=== PATIENT | female | born 1995 | race Two or more races ===

== ENCOUNTER 2016-09-28 17:47 | Emergency (ER) | payer OTHER ==
--- NOTE | 2016-09-28 17:55 | PDOC ---
History of Present Illness - General History Source: Patient Exam Limitations: No Limitations <Cinthia Larson - Last Filed: 09/28/16 18:44> - General History Source: Patient Exam Limitations: No Limitations - History of Present Illness Initial Comments: 09/28/16 18:04 Patient is a 21 year old female with a significant past medical history of left knee meniscus tear who presents to the ED with left knee pain. Patient twisted her left leg today and now reports pain and swelling to the left knee. She states that she never had sx intervention to the left knee. ALL - penicillin <Skyla Upton - Last Filed: 09/28/16 18:49> - General Chief Complaint: Pain, Acute Stated Complaint: LEFT KNEE AND LOWER LEG PAIN Time Seen by Provider: 09/28/16 17:51 Past History <Cinthia Larson - Last Filed: 09/28/16 18:44> <Skyla Upton - Last Filed: 09/28/16 18:49> - Past Medical History Allergies/Adverse Reactions: Allergies Allergy/AdvReac Type Severity Reaction Status Date / Time Penicillins Allergy Severe Difficulty Verified 09/28/16 17:49 Breathing Home Medications: Ambulatory Orders NK [No Known Home Medication] 09/28/16 Review of Systems - Review of Systems Able to Perform ROS?: Yes Comments:: 09/28/16 18:04 GENERAL/CONSTITUTIONAL: No: fever, chills, weakness, loss of appetite. HEAD, EYES, EARS, NOSE AND THROAT: No: change in vision, ear pain, discharge, sore throat, throat swelling. CARDIOVASCULAR: No: chest pain, lightheadedness, palpitations, syncope RESPIRATORY: No: cough, shortness of breath, wheezing, hemoptysis, stridor. GASTROINTESTINAL: No: nausea, vomiting, abdominal cramping, diarrhea, rectal bleeding, constipation. GENITOURINARY: No: dysuria, hematuria, frequency, urgency, flank pain. MUSCULOSKELETAL: Yes: left knee pain and swelling No: back pain, neck pain, muscle pain SKIN: No: lesions, pallor, rash or easy bruising. NEUROLOGIC: No: headache, vertigo, paresthesias, weakness ENDOCRINE: No: unexplained weight gain or loss HEMATOLOGIC/LYMPHATIC: No: anemia, easy bleeding, swelling nodes <Skyla Upton - Last Filed: 09/28/16 18:49> *Physical Exam - Vital Signs Last Vital Signs Temp Pulse Resp BP Pulse Ox 98 F 74 16 137/67 100 09/28/16 17:48 09/28/16 17:48 09/28/16 17:48 09/28/16 17:48 09/28/16 17:48 - Physical Exam Comments: 09/28/16 18:05 GENERAL: The patient is in no acute distress. HEAD: Normal with no signs of trauma. EYES: PERRLA, EOMI, sclera anicteric, conjunctiva clear. ENT: Ears normal, nares patent, oropharynx clear without exudates. Moist mucous membranes. NECK: Normal range of motion, supple without lymphadenopathy, JVD, or masses. LUNGS: Breath sounds equal, clear to auscultation bilaterally. No wheezes, and no crackles. HEART:Regular rate and rhythm, normal S1 and S2 without murmur, rub or gallop. ABDOMEN: Soft, nontender, normoactive bowel sounds. No guarding, no rebound. EXTREMITIES: (+)tenderness over left proximal fibula no bruising, Soft compartments, Stable anterior and posterior drawer, No fluid palpated in her joint. Normal range of motion. No clubbing or cyanosis. No erythema. NEUROLOGICAL: Cranial nerves II through XII grossly intact. Normal speech. No focal neurological deficits. MUSCULOSKELETAL: Back nontender to palpation, no CVA tenderness SKIN: Warm, Dry, normal turgor, no rashes or lesions noted. <Skyla Upton - Last Filed: 09/28/16 18:49> ED Treatment Course - RADIOLOGY Radiology Studies Ordered: Category Date Time Status KNEE 3 POS-LEFT [RAD] Stat Radiology 09/28/16 17:54 Ordered <Cinthia Larson - Last Filed: 09/28/16 18:44> Medical Decision Making - Medical Decision Making 09/28/16 17:55 A portion of this note was documented by scribe services under my direction. I have reviewed the details of the note, within reason, and agree with the documentation with the following case summary and management plan written by me. Nursing documentation reviewed and incorporated into medical decision making 09/28/16 18:44 This a 21-year-old female was otherwise healthy who presents emergency department with a complaint of left lateral knee pain and tenderness. Patient has pain with angulation. Patient states she twisted her left knee, noted pain at the proximal fibula Bruising. No swelling. No prior episodes like this. On examination: tenderness over the proximal fibula no bruising no swelling Pain with ambulation No pain with range of motion stable to anterior and posterior drawer Will do xray Motrin for pain Ice Marques wrap Follow up with Ortho <Cinthia Larson - Last Filed: 09/28/16 18:44> *DC/Admit/Observation/Transfer - Discharge Dispostion Admit: No <Cinthia Larson - Last Filed: 09/28/16 18:44> - Attestations Scribe Attestion: 09/28/16 18:06 Documentation prepared by COLLIN Leavitt, acting as medical center representative for Cinthia Larson MD. <Skyla Upton - Last Filed: 09/28/16 18:49> Diagnosis at time of Disposition: Left knee injury Qualifiers: Encounter type: initial encounter Qualified Code(s): S89.92XA - Unspecified injury of left lower leg, initial encounter - Discharge Dispostion Disposition: HOME Condition at time of disposition: Stable - Referrals Referrals: Davidson Hinkle [Primary Care Provider] - Yovanny Goode MD [Staff Physician] - Federico Cintron MD [Staff Physician] - - Patient Instructions Printed Discharge Instructions: DI for Knee Sprain Additional Instructions: Thank you for coming in to the ER today Please marques wrap your knee Please use crutches as is tolerable you must follow up with an orthopedist for re evaluation within 2-3 days Please use motrin for pain You can apply ice to the area if this is helpful Return to the ER for any other concerns or complaints Your x ray will be officially read tomorrow If there are any new findings we will call you - Post Discharge Activity Work/School Note: Back to Work
[2016-09-28 18:05] VITALS: BP 137/67; PULSE 74; TEMP 98; BMI 17.6
[2016-09-28] MEDS ORDERED: IBUPROFEN 600 MG TABLET (FP) PO ONE ×2 (18:42→18:44)
== END 2016-09-28 18:58 | disposition home or self-care (01) ==
LOC: FER 17:47
DX: S89.92XA Unspecified injury of left lower leg, initial encounter (principal); X58.XXXA Exposure to other specified factors, initial encounter; Y93.89 Activity, other specified; Y92.9 Unspecified place or not applicable
CPT/HCPCS: 73562-TC-LT; 84703; 99282-25